=== PATIENT | female | born 1970 | race Caucasian/White ===

== ENCOUNTER 2017-07-03 10:46 | Emergency (ER) | payer OTHER ==
[~2017-07-03] VITALS: Ht 160 cm; Wt 84.0 kg
[2017-07-03 10:52] VITALS: Ht 160 cm; Wt 84.0 kg
--- NOTE | 2017-07-03 12:15 | ERD ---
ER Documentation Chief Complaint Chief Complaint sent by pmd for urine culture , scheduled for surgery on monday HPI Patient is a 46-year-old female who presents today for urine culture. Patient was diagnosed with bladder cancer and has a surgery pending this Monday. Patient states that she sees Dr. Ace. Dr. Ace has sent her in for urine culture. Patient is currently taking Ciprofloxacin. Patient admits to recurrent UTIs. Patient denies any dysuria, frequency or urgency however she states she is having gross hematuria for the last month. Patient denies any fevers, chills, nausea, vomiting, chest pain, shortness of breath, abdominal pain or LOC. Patient has no other concerns or complaints at this time. Patient is only here for urine culture. ROS All systems reviewed and are negative except as per history of present illness. PMhx/Soc History of Surgery: Yes (TUMOR ON OVARY REMOVED, TUBALIGATION) Anesthesia Reaction: No Hx Neurological Disorder: No Hx Respiratory Disorders: No Hx Cardiac Disorders: No Hx Psychiatric Problems: No Hx Miscellaneous Medical Probl: Yes (BLADDER CA, DM) Hx Alcohol Use: No Hx Substance Use: No Hx Tobacco Use: No Smoking Status: Former smoker Physical Exam Vitals Vital Signs Date Time Temp Pulse Resp B/P Pulse Ox O2 Delivery O2 Flow Rate FiO2 07/03/17 10:52 98.2 87 18 111/68 99 Physical Exam GENERAL: Well-developed, well-nourished female. Appears in no acute distress. HEAD: Normocephalic, atraumatic. EYES: Pupils are equally reactive bilaterally. EOMs grossly intact. No conjunctival erythema. ENT: Moist mucous membranes. No uvula deviation. No kissing tonsils. NECK: Supple. No meningismus. Normal range of motion of the neck. LUNG: Clear to auscultation bilaterally. No rhonchi, wheezing, rales or coarse breath sounds. HEART: Regular rate and rhythm. No murmurs, rubs or gallops. ABDOMEN: Soft and nondistended. Tender to palpation over the suprapubic region. Positive bowel sounds in all four quadrants. No rebound tenderness, no guarding. (-) McBurney's point tenderness. No CVA tenderness. EXTREMITIES: Equal pulses bilaterally. No peripheral clubbing, cyanosis or edema. No unilateral leg swelling. NEUROLOGIC: Alert and oriented. Moving all four extremities without any difficulty. Normal speech. Steady gait. SKIN: Normal color. Warm and dry. No rashes or lesions. Results 24 hrs Laboratory Tests Test 07/03/17 12:05 Urine Color RED Urine Clarity CLEAR Urine pH 6.0 Urine Specific [place] 1.008 Urine Ketones NEGATIVEmg/dL Urine Nitrite NEGATIVEmg/dL Urine Bilirubin NEGATIVEmg/dL Urine Urobilinogen NEGATIVEmg/dL Urine Leukocyte Esterase NEGATIVELeu/ul Urine Microscopic RBC > 182/HPF Urine Microscopic WBC 47/HPF Urine Squamous Epithelial Cells FEW/HPF Urine Mucus FEW/HPF Urine Hemoglobin 3+mg/dL Urine Glucose NEGATIVEmg/dL Urine Total Protein 2+mg/dl Procedures/MDM MEDICAL DECISION MAKING: This is a 46-year-old female who presents to the ED for concerns of being her urine culture. Patient is scheduled for bladder surgery due to having bladder cancer in 2 days. Patient states she is currently taking ciprofloxacin for UTI and was advised by her surgeon Dr. Ace to come to the ED for urine culture. Vital signs were reviewed. Patient was afebrile. UA showed > 182 RBC, 7 WBCs, negative nitrites, negative leukocyte esterase. Urine culture pending. Patient did state that she would contact Dr. Ace tomorrow to let him know that urine culture is obtained and pending results. At this time, patient presentation is most consistent with requiring laboratory tests and history of bladder cancer. Patient was advised to continue taking antibiotics as prescribed. Low suspicion for acute abdomen. PRESCRIPTIONS: Continue antibiotics as prescribed. DISCHARGE: At this time, patient is stable for discharge and outpatient management. I have instructed the patient to follow-up with his/her primary care physician in 1-2 days. Patient should repeat UA in 2 weeks to check for resolution of urinary tract infection. If symptoms persist, patient may need to see a specialist for further examinations and testing. I have instructed the patient to promptly return to the ER at any time for any new or worsening symptoms including increased pain, fever, nausea, vomiting, urinary changes or weakness. The patient and/or family expressed understanding of and agreement with this plan. All questions were answered. Home care instructions were provided. Disclaimer: Inadvertent spelling and grammatical errors are likely due to EHR/ dictation software use and do not reflect on the overall quality of patient care. Also, please note that the electronic time recorded on this note does not necessarily reflect the actual time of the patient encounter. Departure Diagnosis: Primary Impression: Encounter for laboratory test Additional Impression: Bladder cancer Bladder location: unspecified site Qualified Code: C67.9 - Malignant neoplasm of urinary bladder, unspecified site Condition: Stable Patient Instructions: Understanding Bladder Cancer Additional Instructions: Call Dr. Ace to follow-up with your urine culture results. Call your primary care doctor TOMORROW for an appointment during the next 1-2 days.See the doctor sooner or return here if your condition worsens before your appointment time. DOREEN CERNA PA-C Jul 03, 2017 12:15
[2017-07-03 12:56] LABS: ADD UMIC YES; UR ASCORBIC ACID NEGATIVE (NEGATIVE); UR BILIRUBIN (Dip) NEGATIVE (NEGATIVE); UR BLOOD (Dip) 3+ mg/dL (NEGATIVE); UR CLARITY CLEAR (CLEAR); UR COLOR RED (YELLOW); UR GLUCOSE (Dip) NEGATIVE (NEGATIVE); UR KETONES (Dip) NEGATIVE (NEGATIVE); UR LEUKOCYTE ESTERASE (Dip) NEGATIVE Leu/ul (NEGATIVE); UR MUCUS FEW /HPF (NONE SEEN); UR NITRITE (Dip) NEGATIVE (NEGATIVE); UR RBC > 182 /HPF (0-5); UR SPECIFIC GRAVITY (Dip) 1.008 (1.003-1.030); UR SQUAMOUS EPITHELIAL CELL FEW /HPF (FEW); UR TOTAL PROTEIN (Dip) 2+ mg/dl (NEGATIVE); UR UROBILINOGEN (Dip) NEGATIVE (NEGATIVE)
== END 2017-07-03 13:18 | disposition home or self-care (01) ==
LOC: FTE 10:46
DX: C67.9 Malignant neoplasm of bladder, unspecified (principal); E11.9 Type 2 diabetes mellitus without complications; R30.0 Dysuria; Z87.891 Personal history of nicotine dependence
CPT/HCPCS: 81001; 87086; Z7502; 99283

== ENCOUNTER 2017-07-05 06:00 | Day surgery (SDC) | payer OTHER ==
[2017-07-05] VITALS (11 sets, daily range): BP systolic 92–118; BP diastolic 56–73; PULSE 84–92; RESP 13–18; Ht 160 cm; Wt 83.1 kg
[~2017-07-05] VITALS: Ht 160 cm; Wt 83.1 kg
[2017-07-05] MEDS ORDERED: CIPROFLOXACIN 400 MG in D5W 200 ML IVPB SCH (07:00)
[2017-07-05] MEDS ORDERED: CHOL400T10 PO (07:21)
[2017-07-05] MEDS ORDERED: FLUT16SP17 NASAL (07:22)
[2017-07-05] MEDS ORDERED: HYDR-902 PO (07:23)
[2017-07-05] MEDS ORDERED: NITR100C73 PO (07:23)
[2017-07-05] MEDS ORDERED: ALPR0.254 PO (07:24)
[2017-07-05] MEDS ORDERED: ATOR20TA38 PO (07:25)
[2017-07-05] MEDS ORDERED: ASCO250T96 PO (07:25)
[2017-07-05] MEDS ORDERED: SPIR100T31 PO (07:26)
[2017-07-05] MEDS ORDERED: FER325 PO (07:27)
[2017-07-05] MEDS ORDERED: ALBU8.5H3 INH (07:28)
[2017-07-05] MEDS ORDERED: MONT10TA24 PO (07:28)
[2017-07-05] MEDS ORDERED: LORA10TA3 PO (07:29)
[2017-07-05] MEDS ORDERED: MOME13HF INHALATION (07:31)
[2017-07-05] MEDS ORDERED: DOCU-159 PO (07:31)
[2017-07-05] MEDS ORDERED: METF500T4 PO (07:32)
[2017-07-05] MEDS ORDERED: FOLI-49 PO (07:32)
[2017-07-05] MEDS ORDERED: VENL75TA PO (07:34)
[2017-07-05] MEDS ORDERED: NORT50CA PO (07:35)
[2017-07-05] MEDS ORDERED: PROP40TA4 PO (07:35)
[2017-07-05] MEDS ORDERED: QUET300T18 PO (07:36)
[2017-07-05] MEDS ORDERED: SUMA6CAR2 SQ (07:36)
[2017-07-05] MEDS ORDERED: TRAM-40 PO (07:37)
[2017-07-05] MEDS ORDERED: METO10TA96 PO (07:38)
[2017-07-05] MEDS ORDERED: SUMA100T4 PO (07:38)
[2017-07-05] MEDS ORDERED: FENTAnyl 50 MCG/ML VIAL ONE (08:50)
[2017-07-05] MEDS ORDERED: CIPROFLOXACIN 400MG/D5W 200 ML ONE (08:50)
[2017-07-05] MEDS ORDERED: PROPOFOL 20 ML ONE (08:50)
[2017-07-05] MEDS ORDERED: MIDAZOLAM 1 MG/ML 2 ML INJ ONE (08:51)
[2017-07-05] MEDS ORDERED: OXYCODONE/ACETAMINOPHEN (5/325) TAB PO PRN (09:30)
[2017-07-05] MEDS ORDERED: HYDROmorphONE (0.2 MG/ML) 10ML SYG IV PRN ×3 (09:30)
[2017-07-05] MEDS ORDERED: EPHEDrine SULFATE 50 MG/5 ML SYG IV PRN (09:30)
[2017-07-05] MEDS ORDERED: MEPERIDINE 25 MG INJ IV PRN (09:30)
[2017-07-05] MEDS ORDERED: DIPHENHYDRAMINE 50 MG INJ IV PRN (09:30)
[2017-07-05] MEDS ORDERED: METOCLOPRAMIDE 10 MG INJ IV PRN (09:30)
[2017-07-05] MEDS ORDERED: FENTAnyl 50 MCG/ML VIAL IV PRN ×3 (09:30)
[2017-07-05] MEDS ORDERED: LABETALOL HCL 20MG INJ IV PRN (09:30)
[2017-07-05] MEDS ORDERED: ONDANSETRON 4 MG INJ IV PRN (09:30)
[2017-07-05] MEDS ORDERED: METOCLOPRAMIDE 10 MG INJ ONE (09:57)
[2017-07-05] MEDS ORDERED: ONDANSETRON 4 MG INJ ONE (09:57)
[2017-07-05] MEDS ORDERED: DEXAMETHASONE 4 MG/ML 1 ML INJ ONE (09:57)
[2017-07-05] MEDS ORDERED: EPHEDrine SULFATE 50 MG/5 ML SYG ONE (10:12)
--- NOTE | 2017-07-05 10:49 | PDOCDIS ---
Discharge Instructions CONDITION Patient Condition: Good HOME CARE INSTRUCTIONS: Diet Instructions: Regular ACTIVITY: Activity Restrictions: Avoid heavy lifting Do not operate Machinery Bathing Restrictions: Shower FOLLOW UP/APPOINTMENTS Follow-up Plan Monday at 8:15 AM, if this time does not work for patient, then call office for another time. REFERRALS Other Referrals none OTHER ORDERS: Other Orders: [place] to leg bag. Encourage hydration. Light activity, no lifting or straining to have a BM SCHOOL/WORK RELEASE May return to School/Work on: Jul 12, 2017 (after evalauted in office) MALVIN MOREL Jul 05, 2017 10:49
--- NOTE | 2017-07-05 10:51 | PDOCDIS ---
Discharge Instructions CONDITION Patient Condition: Good HOME CARE INSTRUCTIONS: Diet Instructions: Regular ACTIVITY: Activity Restrictions: Avoid heavy lifting Do not operate Machinery Bathing Restrictions: Shower FOLLOW UP/APPOINTMENTS Follow-up Plan Monday at 8:15 AM, if this time does not work for patient, then call office for another time. SCHOOL/WORK RELEASE May return to School/Work on: Jul 12, 2017 (after evalauted in office) MALVIN MOREL Jul 05, 2017 10:51
--- NOTE | 2017-07-05 10:53 | OPR ---
Date/Time of Note Date/Time of Note DATE: 07/05/17 TIME: 10:51 Operative Report Preoperative Diagnosis bladder cancer, gross hematuria Postoperative Diagnosis same Operation/Procedure Performed TURBT of extensive - large bladder tumor, greater than 8 cm in size, vaporization of tumor and coagualtion of bleeding points Surgeon rosalva Shellfish Shucker none Anesthesia Type: general Estimated Blood Loss: minimal Transfusion none Specimen bladder tumor Grafts/Implants none Tubes/Drains [address]uilar to gravity drainage Complications none Pt Condition Post Procedure: stable Disposition: PACU Indications bladder cancer Procedure Description dictation [id number] MALVIN MOREL Jul 05, 2017 10:53
--- NOTE | 2017-07-05 11:33 | OPR ---
DATE OF OPERATION: PREOPERATIVE DIAGNOSIS: Clot retention and bladder cancer. POSTOPERATIVE DIAGNOSIS: Clot retention and bladder cancer. OPERATION PERFORMED: Cystoscopy, transurethral resection of large bladder tumor greater than 8 cm i n size x 8 cm. Coagulation of bleeding points vaporization of bladder tumor. SURGEON: Malka. ANESTHESIA: General. DRAINS: A 22-Spanish 3-way [place] catheter to gravity drainage. COMPLICATIONS: None. BRIEF HISTORY: Aydee is a 46-year-old female with gross hematuria noted to have a 5 cm bladder tumor on CT scan. She has been in clot retention and anemic, requiring prior transfusions. She pre sents today for cystoscopy, attempt for transurethral resection of bladder cancer. The patient unde rstands how the procedure is performed, the potential complications and the potential inability to r esect all tumor. She would like to proceed. Preoperatively, she had a positive urine culture. She is currently on ciprofloxacin. Follow up urine culture at 48 hours is negative. DESCRIPTION OF PROCEDURE: The patient was brought into the operating room and placed on the operati ng table in the supine lithotomy position. She was prepped and draped in usual fashion after anesth esia was induced. A timeout was undertaken. Appropriate pressure points were padded and she receiv ed Invanz 1 gram. Rigid cystoscopy was undertaken with a 12-degree, 30-degree and 70-degree angle l ens. With immediate insertion of the rigid cystoscope into the bladder, a large obstructing papilla ry and actively bleeding bladder tumor could be appreciated. This large papillary tumor encompassed a large amount of the volume of her distended bladder. It appears that this is growing off of the trigone. It advances to the posterior wall, right lateral wall and onto the dome of the bladder. T he cystoscope is able to be placed into a more posterior aspect as the cystoscope was placed to the right of the tumor which demonstrates extensive bladder cancer that is actively bleeding before any resection can be undertaken so as to obtain tissue diagnosis debulk in attempt for control of her ac tive bleeding. A transurethral resection of the bladder tumor was undertaken with every resection b eing performed under direct vision with visualization of the bipolar resectoscope. No blind resecti on was undertaken. At no time could a perforation be appreciated. An extensive amount of tumor was excised from the anterior portion and medial portion with an attempt to obtain tumor control. The actively bleeding and extensive large bladder cancer eventually became noticeable that this was nonr esectable with difficulty in obtaining complete hemostasis utilizing the Ellik evacuator tumor burde n was removed and a repeat evaluation was undertaken. Continuation of bleeding was appreciated. At this point, the button was utilized so as to coagulate and vaporize further tumor burden. This was undertaken in a sequential fashion from medial to lateral from posterior to anterior and only under direct vision. At no point could any ureteral orifice be identified. Pinpoint hemostasis was obtai kiara at this point, a nominal amount of oozing from nonspecific regions could be appreciated and thus it was decided to stop the procedure as this cancer is nonresectable endoscopically. Of note, duri ng the resection portion, broad bands were appreciated to be resected that were cutting through conc ernesto for highly aggressive carcinoma. Portions of the tumor are papillary yet others are discretely solid with concern for high-grade urothelial carcinoma. A 22-Spanish 3-way [place] catheter was insert ed, which was left to gravity drainage. The efflux was initially clear and then became very light p ink. In the recovery room, this continued to be very light pink in nature and actually started to c lear immediately with stabilization and if she remains clear she will be discharged to home and foll ow up next week for a trial void, as well as discussion of pathology and secondary steps. PLAN: She will complete a 5-day course of ciprofloxacin and was written for [place] 5/325 one tab p.o . q.4 hour p.r.n., dispensed #40, no refill. Further intervention evaluation pending clinical cours e and results of above. Dictated By: MALVIN CORONA/NTS Conf#: [id number] DID#: [id number]
--- NOTE | 2017-07-05 12:32 | HPN ---
Date/Time of Note Date/Time of Note DATE: 07/05/17 TIME: 12:32 Interval H&P Admission Note Pt. seen H&P reviewed: No system changes MALVIN MOREL Jul 05, 2017 12:32
== END 2017-07-05 12:10 | disposition home or self-care (01) ==
LOC: SDS 06:00
PROVIDERS: ATTEND Urology
DX: C67.9 Malignant neoplasm of bladder, unspecified (principal); E11.9 Type 2 diabetes mellitus without complications; N39.0 Urinary tract infection, site not specified; J45.909 Unspecified asthma, uncomplicated
CPT/HCPCS: 52240; 82962; J0744; J1100; J1170; J2250; J2405; J2765; J3010; Z7610; 84703; 88305

== ENCOUNTER 2017-10-25 08:17 | Day surgery (SDC) | END 2017-10-26 16:41 | disposition home or self-care (01) ==

== ENCOUNTER 2018-07-25 05:49 | Day surgery (SDC) | payer OTHER ==
[~2018-07-25] VITALS: Ht 160 cm; Wt 90.7 kg
[2018-07-25] VITALS (13 sets, daily range): BP systolic 75–103; BP diastolic 49–67; PULSE 76–96; RESP 13–18; Ht 160 cm; Wt 90.7 kg
[~2018-07-25 05:49] MED LIST: ALBU2.5V3 NEB; ALBU8.5H8 INH; ALPR0.254 PO; ASCO250T96 PO; ATOR20TA38 PO; BISA5TAB PO; CHOL100062 PO; CLOT30CR24 TOP; DOCU-159 PO; FER325 PO; FLUT16SP17 NASAL; HYDR-3980 PO; LORA10TA3 PO; METF500T24 PO; METO10TA3 PO; MONT10TA24 PO; NAPH15DR69 BOTH EYES; NORT50CA PO; PRED20TA PO; PROP40TA4 PO; QUET300T18 PO; ROPI1TAB PO; SPIR100T4 PO; SUMA100T4 PO; SUMA6CAR2 SQ; VENL75TA PO
[2018-07-25] MEDS ORDERED: CEFAZOLIN 1 GM/50 ML (PMX) 50 ML IVPB SCH (06:00)
[2018-07-25] MEDS ORDERED: NEOSTIGMINE 3 MG/3 ML SYRINGE ONE (06:26)
[2018-07-25] MEDS ORDERED: LIDOCAINE 2% (SDV) 5 ML INJ ONE (06:26)
[2018-07-25] MEDS ORDERED: GLYCOPYRROLATE 0.4 MG INJ ONE (06:26)
[2018-07-25] MEDS ORDERED: ROCURONIUM 50 MG INJ ONE (06:26)
[2018-07-25] MEDS ORDERED: PROPOFOL 20 ML ONE (06:26)
--- NOTE | 2018-07-25 06:26 | PREAC ---
Date/Time of Note Date/Time of Note DATE: 07/25/18 TIME: : Anesthesia Eval and Record Evaluation Time Pre-Procedure Interview DATE: 07/25/18 TIME: : Age 48 Sex female NPO: 8 hrs Preoperative diagnosis Bladder Tumor Planned procedure TURBT Past Medical History Past Medical History: Includes Cardio: HTN, Dyslipidemia Endo: Diabetes Pulm: Asthma Neuro: Other Musculoskeletal: Other Renal: Other Hepatic: Other GI: Other Heme: Other Psych: Depression, Anxiety Infection(s): Other Recreational drugs: Other : Other Surgery & Anesthesia Issues Hx of difficult intubation, Aspiration risk Meds Anticoagulation: No Beta Marta within 24 hr: Yes Reason Beta Marta not given: Other Reported Medications Quetiapine Fumarate* (Quetiapine Fumarate*) 300 Mg Tablet, 600 MG PO HS, TAB 10/25/17 Propranolol Hcl* (Propranolol Hcl*) 40 Mg Tablet, 40 MG PO BID, TAB 10/25/17 Nortriptyline Hcl* (Nortriptyline Hcl*) 50 Mg Capsule, 50 MG PO QHS, TAB 10/25/17 Venlafaxine Hcl* (Venlafaxine Hcl*) 75 Mg Tablet, 225 MG PO QAM, TAB 10/25/17 Cholecalciferol* (Vitamin D3*) 1,000 Unit Tablet, 1000 UNIT PO DAILY, TAB 10/25/17 Ropinirole Hcl* (Ropinirole Hcl*) 1 Mg Tablet, 1 MG PO QHS, TAB 10/25/17 Bisacodyl (CORRECTOL) 5 Mg Tablet, 5-10 MG PO DAILY PRN for CONSTIPATION, TAB 10/25/17 Clotrimazole* (Clotrimazole* AF) 1% - 30 Gm Cream.gm., 1 APPLIC TOP BID, TUB 10/25/17 Naphazoline-Pheniramine* (Visine-A*) 15 Ml Drops, 1 DROP BOTH EYES TID PRN for RED EYES, EA 10/25/17 Prednisone* (Prednisone*) 20 Mg Tab, 20 MG PO DAILY, TAB 10/25/17 Albuterol Sulfate* (Albuterol Sulfate* Neb) 0.083%-3 Ml Neb, 2.5 MG NEB Q4 PRN for WHEEZING AND SOB, #30 VIAL 10/25/17 Sumatriptan Succinate* (Sumatriptan Succinate*) 100 Mg Tablet, 100 MG PO BID PRN for MIGRAINE HEADACHE, TAB May repeat after 2 hours if needed; MAX 200 mg/24 hours 07/05/17 Metoclopramide Hcl* (Metoclopramide Hcl*) 10 Mg Tablet, 10 MG PO TID PRN for NAUSEA AND OR VOMITING, TAB 07/05/17 Sumatriptan Succinate* (Sumatriptan Succinate* Inj) 6 Mg/0.5 Ml Cartridge, 6 MG SQ Q12H PRN for MIGRAINE, EA MAX 6 mg/dose, repeat in 1 hour if needed. MAX 12 mg/24 hours 07/05/17 Metformin Hcl* (Metformin Hcl*) 500 Mg Tablet, 500 MG PO WITH BREAKFAST DINNE, #30 TAB 07/05/17 Docusate Sodium* (Docusate Sodium*) 100 Mg Capsule, 100 MG PO BID PRN for CONSTIPATION, #60 CAP 07/05/17 Loratadine* (Loratadine*) 10 Mg Tablet, 10 MG PO DAILY, #30 TAB 07/05/17 Montelukast Sodium* (Montelukast Sodium*) 10 Mg Tablet, 10 MG PO QHS, #30 TAB 07/05/17 Albuterol Sulfate* (Proair HFA*) 8.5 Gm Hfa.aer.ad, 2 PUFF INH Q4H PRN for WHEEZING AND SOB, #1 INHALER 07/05/17 Ferrous Sulfate* (Ferrous Sulfate*) 325 Mg Tabec, 325 MG PO BID, TAB 07/05/17 Spironolactone* (Spironolactone*) 100 Mg Tablet, 100 MG PO DAILY, TAB 07/05/17 Atorvastatin Calcium* (Atorvastatin Calcium*) 20 Mg Tablet, 20 MG PO QHS, #30 TAB 07/05/17 Ascorbic Acid (Vitamin C) 250 Mg Tab, 250 MG PO TID, TAB 07/05/17 Alprazolam* (Alprazolam*) 0.25 Mg Tablet, 0.25 MG PO DAILY PRN for ANXIETY, TAB 07/05/17 Hydrocodone/Acetaminophen ([place] 10-325 Tablet) 1 Each Tablet, 1 EACH PO TID PRN for PAIN, TAB 07/05/17 Fluticasone Propionate* (Fluticasone Propionate* Nasal) 50 Mcg/[place] - 16 Gm [place].susp, 1 SPRAY NASAL BID, #1 BOTTLE TO EACH NOSTRIL 07/05/17 Current Medications Cefazolin Sodium 50 ml @ 100 mls/hr PRE-OP IVPB ; Start 07/25/18 at 06:00; Stop 07/25/18 at 12:00 Meds reviewed: Yes Allergies Coded Allergies: No Known Allergy (Unverified , 10/25/17) Allergies Reviewed: Yes Labs/Studies Labs Reviewed: Reviewed by anesthesiologist test: Negative Studies: ECG, CXR Pre-procedure Exam Airway: Adequate mouth opening Mallampati: Mallampati II Teeth: Normal Lung: Normal Heart: Normal Anticipated Difficutly with IV: Anticipate Difficult IV Access ASA Physical Status ASA physical status: 2 Emergency: None Planned Pain Management Parenteral pain med, Local by surgeon Pre-operative Attestations Prior to commencing anesthesia and surgery, the patient was re-evaluated, there was verification of: *The patient's identity *The results of appropriate recent lab work and preoperative vital signs *The above evaluation not changing prior to induction *Anesthetic plan, risk benefits, alternative and complications discussed with patient/family; questions answered; patient/family understands, accepts and wishes to proceed. KIRILL MICHAELS MD Jul 25, 2018 06:26
[2018-07-25] MEDS ORDERED: FENTAnyl 50 MCG/ML VIAL ONE (06:27)
[2018-07-25] MEDS ORDERED: MIDAZOLAM 1 MG/ML 2 ML INJ ONE (06:27)
[2018-07-25] MEDS ORDERED: ALBUTEROL 0.083% (NEB) 2.5 MG/3 ML AMP ONE (06:27)
[2018-07-25] MEDS ORDERED: HYDROCORTISONE 100 MG INJ ONE (06:28)
[2018-07-25] MEDS ORDERED: DEXAMETHASONE 4 MG/ML 5 ML INJ ONE (06:33)
[2018-07-25] MEDS ORDERED: ONDANSETRON 4 MG INJ ONE (06:33)
[2018-07-25] MEDS ORDERED: METHYLPREDNISOLONE 125 MG INJ IV ONE (07:00)
[2018-07-25] MEDS ORDERED: SUCCINYLCHOLINE CHLORIDE 100 MG/5 ML SYG IV ONE (07:00)
[2018-07-25] MEDS ORDERED: CEFAZOLIN 1 GM INJ ONE (07:00)
[2018-07-25] MEDS ORDERED: SOD CHLORIDE 0.9% 1,000 ML IV ONE (07:00)
[2018-07-25] MEDS ORDERED: SEVOFLURANE 15 MIN ONE (07:00)
[2018-07-25] MEDS ORDERED: VENL75CA89 PO (07:22)
[2018-07-25] MEDS ORDERED: VENL150C94 PO (07:22)
[2018-07-25] MEDS ORDERED: QUET200T27 PO (07:23)
[2018-07-25] MEDS ORDERED: BREX3TAB PO (07:23)
[2018-07-25] MEDS ORDERED: SUMA100T4 PO (07:52)
[2018-07-25] MEDS ORDERED: FLUT16SP17 NASAL (07:53)
[2018-07-25] MEDS ORDERED: ROPI1TAB PO (07:53)
[2018-07-25] MEDS ORDERED: ATOR20TA38 PO (07:53)
[2018-07-25] MEDS ORDERED: METF500T24 PO (07:54)
[2018-07-25] MEDS ORDERED: SPIR100T4 PO (07:54)
[2018-07-25] MEDS ORDERED: MONT10TA24 PO (07:54)
[2018-07-25] MEDS ORDERED: LORA10TA3 PO (07:55)
[2018-07-25] MEDS ORDERED: DOCU-144 PO (07:55)
[2018-07-25] MEDS ORDERED: ASCO250T96 PO (07:56)
[2018-07-25] MEDS ORDERED: FER325 PO (07:57)
[2018-07-25] MEDS ORDERED: ALBU2.5V3 NEB (07:57)
[2018-07-25] MEDS ORDERED: METO10TA92 PO (07:58)
[2018-07-25] MEDS ORDERED: FOLI-49 PO (07:58)
[2018-07-25] MEDS ORDERED: ALBU8.5H8 INH (07:59)
[2018-07-25] MEDS ORDERED: TOPI50TA13 PO (08:00)
[2018-07-25] MEDS ORDERED: SUGAMMADEX SODIUM 200 MG/2 ML VIAL IV ONE (08:49)
--- NOTE | 2018-07-25 09:05 | SIPON ---
Date/Time of Note Date/Time of Note DATE: 07/25/18 TIME: 09:04 Operative Report Preoperative Diagnosis Bladder cancer Postoperative Diagnosis Bladder cancer Operation/Procedure Performed TRUBT > 5cm (in aggregate) Surgeon see signature line senior sales assistant [employer] Anesthesia: general Estimated blood loss: minimal Transfusion Required none Specimen Bladder tumor from various sites Grafts/Implants 18 fr aguilar Complications none KEL GRAHAM Jul 25, 2018 09:05
[2018-07-25] MEDS ORDERED: FLUMAZENIL 0.5 MG INJ ONE (09:06)
--- NOTE | 2018-07-25 09:08 | DS ---
Date/Time of Note Date/Time of Note DATE: 07/25/18 TIME: 09:05 Discharge Summary Admission/Discharge Info Admit Date/Time 07/25/18 Discharge Date/Time 07/25/18 Discharge Diagnosis bladder cancer Patient Condition: Good Consults None Procedures Transurethral resection bladder tumor > 5 cm (in aggregate) Hx of Present Illness Hx recurrent low grade superficial bladder cancer Hospital Course Pt was admitted to the hospital, underwent TURBT. once pt was stable, tolerating diet, remaining afebrile, and pain was well controlled, she was disc harged with her aguilar catheter in place Pt was given cipro and tramadol Rx Home Meds Reported Medications Topiramate* (Topiramate*) 50 Mg Tablet, 50 MG PO BID, TAB 07/25/18 Albuterol Sulfate* (Proair HFA*) 8.5 Gm Hfa.aer.ad, 2 PUFF INH Q4H PRN for WHEEZING AND SOB, #1 INHALER 07/25/18 Folic Acid* (Folic Acid*) 1 Mg Tablet, 1 MG PO DAILY, TAB 07/25/18 Metoclopramide* (Reglan*) 10 Mg Tablet, 10 MG PO TID PRN for NAUSEA AND/OR VOMITING, TAB 07/25/18 Ferrous Sulfate* (Ferrous Sulfate*) 325 Mg Tabec, 325 MG PO BID, TAB 07/25/18 Albuterol Sulfate* (Albuterol Sulfate* Neb) 0.083%-3 Ml Neb, 2.5 MG NEB Q4 PRN for WHEEZING AND SOB, #30 VIAL 07/25/18 Ascorbic Acid (Vitamin C) 250 Mg Tab, 250 MG PO TID, TAB 07/25/18 Docusate Sodium* (Colace*) 100 Mg Capsule, 100 MG PO BID PRN for CONSTIPATION, #60 CAP 07/25/18 Loratadine* (Loratadine*) 10 Mg Tablet, 10 MG PO DAILY, #30 TAB 07/25/18 Metformin Hcl* (Metformin Hcl*) 500 Mg Tablet, 500 MG PO WITH BREAKFAST DINNE, #60 TAB 07/25/18 Montelukast Sodium* (Montelukast Sodium*) 10 Mg Tablet, 10 MG PO QHS, #30 TAB 07/25/18 Spironolactone* (Spironolactone*) 100 Mg Tablet, 100 MG PO DAILY, TAB 07/25/18 Atorvastatin Calcium* (Atorvastatin Calcium*) 20 Mg Tablet, 20 MG PO QHS, #30 TAB 07/25/18 Ropinirole Hcl* (Ropinirole Hcl*) 1 Mg Tablet, 1 MG PO HS, TAB 07/25/18 Fluticasone Propionate* (Fluticasone Propionate* Nasal) 50 Mcg/[place] - 16 Gm [place].susp, 1 SPRAY NASAL BID, #1 BOTTLE TO EACH NOSTRIL 07/25/18 Sumatriptan Succinate* (Sumatriptan Succinate*) 100 Mg Tablet, 100 MG PO BID PRN for MIGRAINE HEADACHE, TAB May repeat after 2 hours if needed; MAX 200 mg/24 hours 07/25/18 Brexpiprazole (Rexulti) 3 Mg Tablet, 3 MG PO QHS, TAB 07/25/18 Quetiapine Fumarate* (Quetiapine Fumarate*) 200 Mg Tablet, 200 MG PO HS, TAB 07/25/18 Venlafaxine Hcl* (Venlafaxine Hcl ER*) 150 Mg Cap.er.24h, 150 MG PO DAILY, CAP TAKE WITH THE 75MG 07/25/18 Venlafaxine Hcl* (Venlafaxine Hcl ER*) 75 Mg Cap.er.24h, 75 MG PO DAILY, CAP TAKE WITH THE 150MG 07/25/18 Discontinued Reported Medications Quetiapine Fumarate* (Quetiapine Fumarate*) 300 Mg Tablet, 600 MG PO HS, TAB 10/25/17 Propranolol Hcl* (Propranolol Hcl*) 40 Mg Tablet, 40 MG PO BID, TAB 10/25/17 Nortriptyline Hcl* (Nortriptyline Hcl*) 50 Mg Capsule, 50 MG PO QHS, TAB 10/25/17 Venlafaxine Hcl* (Venlafaxine Hcl*) 75 Mg Tablet, 225 MG PO QAM, TAB 10/25/17 Cholecalciferol* (Vitamin D3*) 1,000 Unit Tablet, 1000 UNIT PO DAILY, TAB 10/25/17 Ropinirole Hcl* (Ropinirole Hcl*) 1 Mg Tablet, 1 MG PO QHS, TAB 10/25/17 Bisacodyl (CORRECTOL) 5 Mg Tablet, 5-10 MG PO DAILY PRN for CONSTIPATION, TAB 10/25/17 Clotrimazole* (Clotrimazole* AF) 1% - 30 Gm Cream.gm., 1 APPLIC TOP BID, TUB 10/25/17 Naphazoline-Pheniramine* (Visine-A*) 15 Ml Drops, 1 DROP BOTH EYES TID PRN for RED EYES, EA 10/25/17 Prednisone* (Prednisone*) 20 Mg Tab, 20 MG PO DAILY, TAB 10/25/17 Albuterol Sulfate* (Albuterol Sulfate* Neb) 0.083%-3 Ml Neb, 2.5 MG NEB Q4 PRN for WHEEZING AND SOB, #30 VIAL 10/25/17 Sumatriptan Succinate* (Sumatriptan Succinate*) 100 Mg Tablet, 100 MG PO BID PRN for MIGRAINE HEADACHE, TAB May repeat after 2 hours if needed; MAX 200 mg/24 hours 07/05/17 Metoclopramide Hcl* (Metoclopramide Hcl*) 10 Mg Tablet, 10 MG PO TID PRN for NAUSEA AND OR VOMITING, TAB 07/05/17 Sumatriptan Succinate* (Sumatriptan Succinate* Inj) 6 Mg/0.5 Ml Cartridge, 6 MG SQ Q12H PRN for MIGRAINE, EA MAX 6 mg/dose, repeat in 1 hour if needed. MAX 12 mg/24 hours 07/05/17 Metformin Hcl* (Metformin Hcl*) 500 Mg Tablet, 500 MG PO WITH BREAKFAST DINNE, #30 TAB 07/05/17 Docusate Sodium* (Docusate Sodium*) 100 Mg Capsule, 100 MG PO BID PRN for CONSTIPATION, #60 CAP 07/05/17 Loratadine* (Loratadine*) 10 Mg Tablet, 10 MG PO DAILY, #30 TAB 07/05/17 Montelukast Sodium* (Montelukast Sodium*) 10 Mg Tablet, 10 MG PO QHS, #30 TAB 07/05/17 Albuterol Sulfate* (Proair HFA*) 8.5 Gm Hfa.aer.ad, 2 PUFF INH Q4H PRN for WHEEZING AND SOB, #1 INHALER 07/05/17 Ferrous Sulfate* (Ferrous Sulfate*) 325 Mg Tabec, 325 MG PO BID, TAB 07/05/17 Spironolactone* (Spironolactone*) 100 Mg Tablet, 100 MG PO DAILY, TAB 07/05/17 Atorvastatin Calcium* (Atorvastatin Calcium*) 20 Mg Tablet, 20 MG PO QHS, #30 TAB 07/05/17 Ascorbic Acid (Vitamin C) 250 Mg Tab, 250 MG PO TID, TAB 07/05/17 Alprazolam* (Alprazolam*) 0.25 Mg Tablet, 0.25 MG PO DAILY PRN for ANXIETY, TAB 07/05/17 Hydrocodone/Acetaminophen ([place] 10-325 Tablet) 1 Each Tablet, 1 EACH PO TID PRN for PAIN, TAB 07/05/17 Fluticasone Propionate* (Fluticasone Propionate* Nasal) 50 Mcg/[place] - 16 Gm [place].susp, 1 SPRAY NASAL BID, #1 BOTTLE TO EACH NOSTRIL 07/05/17 Follow-up Plan one week Dr Burton's office Primary Care Provider Not On Staff Doctor Time spent on discharge: < 30 minutes Pending Labs Laboratory Tests Test 07/25/18 06:08 07/25/18 06:15 Bedside Glucose 125 mg/dL (70-220) White Blood Count 11.0 10^3/ul (4.8-10.8) Red Blood Count 4.69 10^6/ul (4.20-5.40) Hemoglobin 13.0 g/dl (12.0-16.0) Hematocrit 38.4 % (37.0-47.0) Mean Corpuscular Volume 81.9 fl (82.0-101.0) Mean Corpuscular Hemoglobin 27.7 pg (29.0-33.0) Mean Corpuscular 33.9 g/dl (32.0-37.0) Hemoglobin Concent Red Cell Distribution Width 13.8 % (11.5-14.5) Platelet Count 275 10^3/UL (140-415) Mean Platelet Volume 10.3 fl (7.4-10.4) Immature Granulocytes % 0.500 % (0.001-0.429) Neutrophils % 55.0 % (39.0-77.0) Lymphocytes % 30.0 % (15.0-51.0) Monocytes % 6.1 % (0.0-11.0) Eosinophils % 7.9 % (0.0-7.0) Basophils % 0.5 % (0.0-2.0) Nucleated Red Blood Cells % 0.0 /100WBC (0.0-0.0) Immature Granulocytes # 0.050 10^3/ul (0.0-0.031) Neutrophils # 6.1 10^3/ul (1.6-7.5) Lymphocytes # 3.3 10^3/ul (0.8-2.9) Monocytes # 0.7 10^3/ul (0.3-0.9) Eosinophils # 0.9 10^3/ul (0.0-0.5) Basophils # 0.1 10^3/ul (0.0-0.1) Nucleated Red Blood Cells # 0.0 10^3/ul (0.0-0.0) Prothrombin Time 12.9 Sec (11.9-14.9) Prothrombin Time Ratio 1.0 INR International 0.96 Normalized Ratio Activated Partial Thromboplast 31.9 Sec (23.0-35.0) Time Sodium Level 141 mmol/L (135-144) Potassium Level 3.6 mmol/L (3.5-5.1) Chloride Level 112 mmol/L (97-110) Carbon Dioxide Level 18 mmol/L (21-31) Anion Gap 11 (5-13) Blood Urea Nitrogen 18 mg/dl (7-20) Creatinine 0.96 mg/dl (0.44-1.00) Est Glomerular Filtrat > 60 mL/min (>60) Rate mL/min Glucose Level 117 mg/dl (70-220) Calcium Level 9.8 mg/dl (8.4-10.2) Total Bilirubin 0.2 mg/dl (0.2-1.3) Direct Bilirubin 0.00 mg/dl (0.00-0.20) Indirect Bilirubin 0.2 mg/dl (0-1.1) Aspartate Amino Transf (AST/SGOT) 30 IU/L (15-46) Alanine 31 IU/L (13-69) Aminotransferase (ALT/SGPT) Alkaline Phosphatase 108 IU/L (42-121) Total Protein 7.6 g/dl (6.1-8.1) Albumin 4.5 g/dl (3.3-4.9) Globulin 3.10 g/dl (1.3-3.2) Albumin/Globulin Ratio 1.45 KEL BURTON Jul 25, 2018 09:08
--- NOTE | 2018-07-25 09:10 | PDOCDIS ---
Discharge Instructions DIAGNOSIS Discharge Diagnosis bladder cancer CONDITION [id number] Patient Condition: Vomie3h Good HOME CARE INSTRUCTIONS: [id number] Diet Instructions: Uytpc1b Regular [id number] Special Diet: Zpllj4u diabetic diet ACTIVITY: Suaev5Hg Activity Restrictions: [id number] Slowly Increase Activity No Sexual Activity [id number] Bathing Restrictions: [id number] Shower FOLLOW UP/APPOINTMENTS Follow-up Plan one week Dr Burton's office KEL BURTON Jul 25, 2018 09:10
--- NOTE | 2018-07-25 09:24 | PAC ---
Date/Time of Note Date/Time of Note DATE: 07/25/18 TIME: 09:23 Post-Anesthesia Notes Post-Anesthesia Note Activity: WNL Respiratory function: WNL Cardiovascular function: WNL Mental status: Baseline Pain reasonably controlled: Yes Hydration appropriate: Yes Nausea/Vomiting absent: No KIRILL MICHAELS MD Jul 25, 2018 09:24
[2018-07-25] MEDS ORDERED: HYDROmorphONE 1 MG/5 ML IV SYRINGE IV ONE (09:26)
[2018-07-25] MEDS ORDERED: MEPERIDINE 25 MG INJ IV PRN (09:30)
[2018-07-25] MEDS ORDERED: HYDROmorphONE 1 MG/5 ML IV SYRINGE IV PRN ×3 (09:30)
[2018-07-25] MEDS ORDERED: FENTAnyl 50 MCG/ML VIAL IV PRN ×3 (09:30)
[2018-07-25] MEDS ORDERED: ONDANSETRON 4 MG INJ IV PRN (09:30)
[2018-07-25] MEDS ORDERED: KETOROLAC 30 MG INJ IV PRN (09:30)
[2018-07-25] MEDS ORDERED: OXYCODONE/ACETAMINOPHEN (5/325) TAB PO PRN ×2 (09:30)
[2018-07-25] MEDS ORDERED: IPRATROPIUM (NEB) 0.5 MG/2.5 ML AMP HHN PRN (09:30)
--- NOTE | 2018-07-25 09:33 | HP ---
DATE OF ADMISSION: 07/25/2018 CHIEF COMPLAINT: Bladder tumor. HISTORY OF PRESENT ILLNESS: This is a 47-year-old female with history of TA NX MX low-grade urothelial carcinoma. On 10/25/2017 she underwent a complete resection of a huge 8 cm tumor. Patient has had some reoccurrences which were small enough to be resected in my office. In April 2017, cystoscopy with bladder tumor resection in my office revealed a low grade transitional cell carcinoma. Patient underwent surveillance cystoscopies. She did not have any reoccurrences until 06/2018. At that point, multiple papillary tumors were seen on surveillance cystoscopy. She is now scheduled to undergo a resection of these tumors. She has not had any gross hematuria. Patient also has had CT imaging. In 07/2017, a CT of chest, abdomen and pelvis revealed no evidence of metastatic disease; however, a large tumor had been seen. Patient also has had intermittent bouts of urinary tract infections for which she has required antibiotics. She also complains of frequency, urgency. She has had mixed urinary incontinence, including leaking with urgency as well as leaking with stress. She wears 4 panty liners per day, which are moderately soaked. PAST MEDICAL HISTORY: Asthma, migraine, diabetes. PAST SURGICAL HISTORY: Previous TURBT 10/2017, removal of a benign tumor from ovary. FAMILY HISTORY: Father colon cancer. Sister renal cancer. SOCIAL HISTORY: The patient does not drink alcohol. She used to smoke but she reports that she stopped in 2017. ALLERGIES: No known drug allergies. MEDICATIONS: 1. Dulera. 2. Fluticasone. 3. Folic acid. 4. Loratadine. 5. Metformin. 6. Metoclopramide. 7. Montelukast. 8. Nortriptyline. 10. Pro-Air. 11. Propranolol. 12. Spironolactone. 13. Sumatriptan. 14. Venlafaxine. PHYSICAL EXAMINATION: CONSTITUTIONAL: Patient appears to be in no acute distress. GASTROINTESTINAL: Abdomen soft, normal bowel sounds, nondistended, nontender. Hernia exam none noted. Liver and spleen normal. GENITOURINARY: Kidneys, no CVA tenderness. Bladder, no fullness. EXTREMITIES: No edema. ASSESSMENT: 1. Recurrent low grade superficial urothelial carcinoma of the bladder. 2. Urinary frequency, urgency. 3. Mixed urinary incontinence: urge and stress incontinence. PLAN: I have reviewed with the patient the natural history biology and grading of bladder cancer. We have discussed various treatment options. She understands these options include but not limited to no treatment, transurethral fulguration, transurethral resection, cystectomy, radiation and chemotherapy. Since patient has low grade superficial disease, I have recommended that she undergo transurethral resection of bladder tumor. This procedure has been explained to the patient in detail. Risk and benefits have been discussed. All of her questions have been answered. She also that risks include, but not limited to infection, bleeding, damage to adjacent structures, heart problems, lung problems, possibility of need for further surgery, DVT, PE, AL, CVA, nonresolution of symptoms, recurrence of symptoms, need for other treatments, need for other surgeries, bladder perforation, worsening of urinary incontinence, recurrence of disease. All of her questions have been answered, no guarantees given. She would like to proceed. Dictated By: KEL GRAHAM MD, SR/ROSALIND Conf#: [id number] DID#: [id number] MTDD
--- NOTE | 2018-07-25 10:33 | OPR ---
DATE OF OPERATION: 07/25/2018 SURGEON: Kel Burton. PREOPERATIVE DIAGNOSIS: Bladder tumor. POSTOPERATIVE DIAGNOSIS: Urothelial carcinoma of bladder. OPERATION PERFORMED: Transurethral resection of bladder tumor greater than 5 cm. INDICATIONS FOR PROCEDURE: The patient has a history of a bladder cancer. She is status post a prio r resection of bladder tumor in 10/2017. At that time, she had a large 8 cm low grade bladder cancer without muscle invasion. On surveillance cystoscopy, she was found to have recurrence. She is now scheduled to undergo resection of the recurrent bladder tumor. The procedure has been explained to t he patient in detail. Risk and benefits have been discussed. All of her questions have been answere d, no guarantees given. She would like to proceed. FINDINGS: The bladder contained multiple small superficial appearing papillary bladder tumors. Thes e tumors, there are about 20-25 such tumors. Most of the papillary tumors were studded along the lef t side of the bladder with a few on the right side. The left anterior wall, left lateral wall and le ft posterior wall contained the majority of these tumors. A small amount of tumor was also identifie d along the left bladder neck area at about the 2 o'clock to 3 o'clock position. A few tiny tumors w ere also identified along the right lateral wall. All the tumors were away from the ureteral orifice s. The smaller tumors were vaporized with the button bipolar electrode and then cauterized. The are as where a larger conglomeration of tumors were found were removed either with the cold cup biopsy fo rceps or with a transurethral resection bipolar cautery loop. No bladder perforation was identified. Ureteral orifices were kept intact. PROCEDURE IN DETAIL: The patient was brought to the operating room, underwent general anesthesia. S he was placed in lithotomy position. Abdomen, perineum and genitalia were prepped and draped in the usual sterile fashion. The 26-Scottish continuous resecting sheath was placed under direct vision with visualizing the obturator into the bladder. The urethra and bladder were carefully examined. Multi ple tumors, about 20-25 tumors were identified. Most of these tumors were located along the left lat eral wall, left posterior wall, left anterior wall as well as near the bladder neck and a few along t he right posterior wall and right lateral wall. The cold cup biopsy forceps was then used to excise and resect some of the tumors along the left post erior bladder wall. About 80% of the tumor burden along the left posterior bladder wall was removed in this fashion. Next, the resecting loop was placed. The rest of the tumor was resected from the l eft posterior bladder wall with the resecting loop. Dissection was carried down to subcutaneous tiss ues. Once these were obtained these were sent to pathology as left posterior bladder wall bladder tu mor. Next deeper resection was carried through the left posterior bladder wall. This was sent as de ep resection or deep biopsy at the site of tumor left posterior wall. The anterior wall tumors were also partially removed with the cold cup biopsy forceps. Next, the res ecting element was used to resect the rest of the left anterior bladder wall tumors. Resection was c arried to beyond the subcutaneous layer. These were sent to pathology together as a left anterior bl adder wall tumor. Attention was then paid to the left lateral wall tumor. These were resected using the resectoscope. Resection was carried through the initial layer. These were collected and sent to pathology as blad alko tumor, left lateral wall. Next deeper resection was carried using the electrocautery loop throug h the muscularis layer. This was sent to pathology as deep resection at the site of bladder tumor, l eft lateral wall. The button electrode was then placed. The initial resection had been carried using the bipolar resec tion instrumentation. The button electrode was placed and again bipolar treatment was performed. Th e defect created by resection of tumor was then treated with the button electrode for further hemosta sis. Furthermore, the edges of the defect were treated with the button electrode to obtain excellent hemostasis. A few scattered small tiny papillary tumors were identified between the areas of resect ion. For instance between the anterior and posterior left wall as well as between the left lateral a nd left anterior wall locations. These papillary tumors were electrovaporized with the button electr ode. Next, the area of the left vaporization was further treated with the button electrode bipolar c auterization. Attention was then paid to the right side. There were a few 2 to 3, less than 5 mm tu mors along the right anterior bladder wall. These were electrovaporized with using the button electr ode and further cauterized. A few tumors were also identified. These were also less than 5 mm along the left lateral wall proximal to the left ureteral orifice, as well as distal to the left ureteral orifice. These were also vaporized and then treated with cauterization. The entire bladder was care fully examined and no further tumors were identified. Overall, the area of resection was greater unruly n 5 cm. The ureteral orifices were orthotopic. Bladder was copiously irrigated. An area of the res ection were carefully examined. No evidence of bleeding was identified. No evidence of bladder perf oration was seen. An 18-[place] catheter was placed for the patient. Catheter was hand irrigat ed. Irrigant was clear. The patient was then placed back in supine position. She was awakened, ext ubated, and taken to recovery room in stable condition. POSTOPERATIVE CONDITION: Stable. COMPLICATIONS: None. BLOOD LOSS: Minimal. BLOOD ADMINISTERED: None. SPECIMENS SENT TO LAB: Bladder tumor as described above. Dictated By: KEL BURTON MD, SR/ROSALIND Conf#: [id number] DID#: [id number]
--- NOTE | 2018-07-26 21:45 | RADRPT ---
Vent Rate: 73 bpm RR Interval: 0 msec NE Interval: 154 msec QRS Duration: 82 msec QT Interval: 404 msec QTC Interval: 445 msec P-R-T [place]: 66 - 58 - 61 degrees Normal sinus rhythm Normal ECG Electronically Signed By: Jan Carmona [id number]
== END 2018-07-25 11:25 | disposition home or self-care (01) ==
LOC: SDS 05:49
PROVIDERS: ATTEND Surgery Surgical Oncology
DX: D49.4 Neoplasm of unspecified behavior of bladder (principal); Z85.51 Personal history of malignant neoplasm of bladder; J45.909 Unspecified asthma, uncomplicated; E11.9 Type 2 diabetes mellitus without complications; Z79.84 Long term (current) use of oral hypoglycemic drugs
CPT/HCPCS: 52235; 71045; 80053; 82962; 85025; 85610; 85730; 88305; 93005; 94664; J0690; J1100; J1170; J1720; J1885; J2175; J2250; J2405; J2710; J2930; J3010; Z7512; Z7610